=== PATIENT | male | born 1990 | race Caucasian/White ===

== ENCOUNTER 2016-09-13 16:33 | Emergency (ER) | payer OTHER ==
[2016-09-13] MEDS ORDERED: LIDOCAINE 1% 10 ML VIAL INJ ONE (18:03)
--- NOTE | 2016-09-13 18:04 | ED.PDOC ---
History of Present Illness - General Chief Complaint: Laceration Time Seen by Provider: 09/13/16 17:54 Additional Information: CUT ON GLASS - History of Present Illness Timing/Duration: 1 hour Severity: mild Improving Factors: nothing Worsening Factors: nothing Associated Symptoms: denies symptoms, other - TETANUS UTD Allergies/Adverse Reactions: Allergies NO KNOWN ALLERGY Allergy (Verified 04/17/16 16:29) Home Medications: Ambulatory Orders Fluoxetine HCl [Prozac] 40 mg PO DAILY 04/17/16 Promethazine Tab [Phenergan Tablet] 25 mg PO Q4H #14 tab 04/17/16 Stomach Pill 04/17/16 Review of Systems - Review of Systems Constitutional: Denies: chills, fever Musculoskeletal: States: other - PAIN TO LEG. Denies: back pain, neck pain Skin: States: other - LECERATION Neurological: Denies: numbness, paresthesia Past Medical History (General) - Patient Medical History Hx Seizures: No Hx Stroke: No Hx Dementia: No Hx Asthma: No Hx of COPD: No Hx Cardiac Disorders: No Hx Congestive Heart Failure: No Hx Pacemaker: No Hx Hypertension: No Hx Thyroid Disease: No Hx Diabetes: No Hx Gastroesophageal Reflux: No Hx Renal Disease: No Hx Cancer: No Hx of HIV: No Hx Hepatitis C: No Hx MRSA: No - Vaccination History Hx Tetanus, Diphtheria Vaccination: Yes Hx Influenza Vaccination: Yes Hx Pneumococcal Vaccination: Yes - Social History Hx Tobacco Use: Yes Hx Chewing Tobacco Use: Yes Hx Alcohol Use: No Hx Substance Use: No Hx Substance Use Treatment: No Hx Depression: No Hx Physical Abuse: No Hx Emotional Abuse: No Hx Suspected Abuse: No - Female History Patient : No Family Medical History - Family History Mother Family History: No Known Living Status: Still Living Physical Exam - Physical Exam General Appearance: Alert, No apparent distress Eye Exam: bilateral normal Back Exam: normal inspection, no CVA tenderness Extremity: normal range of motion, normal capillary refill Neurologic: no motor/sensory deficits, alert, normal mood/affect Procedures - Laceration/Wound Repair Right Lower Wound Length (cm): 4.5 - LINEAR LACERATION TO R LOWER LEG INTO SUBQ Wound's Depth, Shape: linear Wound Explored: no foreign body removed Betadine Prep?: Yes Anesthesia: 1% Lidocaine Wound Repaired With: heidy Layer Closure?: No Sterile Dressing Applied?: Yes Splint Applied?: No Sling Applied?: No Departure - Departure Clinical Impression: Laceration of leg excluding thigh Qualifiers: Encounter type: initial encounter Laterality: right Qualifier Code: (S81.811A) Laceration without foreign body, right lower leg, initial encounter Time of Disposition: 18:29 Disposition: Discharge to Home or Self Care Condition: Good Departure Forms: ED Discharge - Pt. Copy, Patient Portal Self Enrollment Instructions: DI for Laceration Repair -- [place] Home Medications: Ambulatory Orders Fluoxetine HCl [Prozac] 40 mg PO DAILY 04/17/16 Promethazine Tab [Phenergan Tablet] 25 mg PO Q4H #14 tab 04/17/16 Stomach Pill 04/17/16
[2016-09-13] MEDS ORDERED: POVIDONE IODINE 10 % 15 ML UD TOP ONE (19:11)
[2016-09-13 20:03] VITALS: BP 129/76; TEMP 97.6; O2SAT 98
== END 2016-09-13 18:45 | disposition home or self-care (01) ==
LOC: ER 16:33
DX: S81.811A Laceration without foreign body, right lower leg, initial encounter (principal); Z87.891 Personal history of nicotine dependence; W25.XXXA Contact with sharp glass, initial encounter

== ENCOUNTER 2016-09-18 10:50 | Emergency (ER) | payer OTHER ==
[2016-09-18 11:05] VITALS: BP 152/93; TEMP 98.4; O2SAT 99
[2016-09-18] MEDS ORDERED: SULFA/TRIMETH 800/160 (DS) TAB 1 EA TAB PO ONE (11:11)
--- NOTE | 2016-09-18 11:14 | ED.PDOC ---
History of Present Illness - General Chief Complaint: Trauma Stated Complaint: chain saw blade came off and hit hit face Time Seen by Provider: 09/18/16 11:11 Source: patient Exam Limitations: no limitations - History of Present Illness Initial Comments: pt here for lac x2 t the right face after a chainsaw chain came off of the bar. 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 wearing protective goggles. 2cm lac above the left eye brow and 1.5 cm lace over maxiallary prominence. ebl 40cc. utd on tetanus. Timing/Duration: momentarily Severity: mild Improving Factors: nothing Worsening Factors: nothing Associated Symptoms: denies symptoms Allergies/Adverse Reactions: Allergies NO KNOWN ALLERGY Allergy (Verified 04/17/16 16:29) Home Medications: Ambulatory Orders Fluoxetine HCl [Prozac] 40 mg PO DAILY 04/17/16 Promethazine Tab [Phenergan Tablet] 25 mg PO Q4H #14 tab 04/17/16 Stomach Pill 04/17/16 Review of Systems - Review of Systems Constitutional: States: no symptoms reported EENTM: States: no symptoms reported Respiratory: States: no symptoms reported Cardiology: States: no symptoms reported Gastrointestinal/Abdominal: States: no symptoms reported Genitourinary: States: no symptoms reported Musculoskeletal: States: no symptoms reported Skin: States: see HPI Endocrine: States: no symptoms reported All other Systems: No Change from Baseline Past Medical History (General) - Patient Medical History Hx Seizures: No Hx Stroke: No Hx Dementia: No Hx Asthma: No Hx of COPD: No Hx Cardiac Disorders: No Hx Congestive Heart Failure: No Hx Pacemaker: No Hx Hypertension: No Hx Thyroid Disease: No Hx Diabetes: No Hx Gastroesophageal Reflux: No Hx Renal Disease: No Hx Cancer: No Hx of HIV: No Hx Hepatitis C: No Hx MRSA: No - Vaccination History Hx Tetanus, Diphtheria Vaccination: Yes Hx Influenza Vaccination: Yes Hx Pneumococcal Vaccination: Yes - Social History Hx Tobacco Use: Yes Hx Chewing Tobacco Use: Yes Hx Alcohol Use: No Hx Substance Use: No Hx Substance Use Treatment: No Hx Depression: No Hx Physical Abuse: No Hx Emotional Abuse: No Hx Suspected Abuse: No - Female History Patient : No Family Medical History - Family History Mother Family History: No Known Living Status: Still Living Physical Exam - Physical Exam General Appearance: Alert, Comfortable, No apparent distress Eye Exam: bilateral normal Ears, Nose, Throat: hearing grossly normal, normal ENT inspection Neck: full range of motion Respiratory: no respiratory distress, no accessory muscle use Cardiovascular/Chest: no edema Back Exam: normal inspection Extremity: normal range of motion, no pedal edema Neurologic: alert, normal mood/affect, oriented x 3 Skin Exam: normal color, other - see hpi for lacs Comments: Vital Signs - 24 hr 09/18/16 11:00 Temperature 98.4 F Pulse Rate [ 66 monitor] Respiratory 20 Rate Blood Pressure 152/93 [Left Arm] O2 Sat by Pulse 99 Oximetry Progress - Progress Progress: 09/18/16 11:14 pt here with lacs to left side of face. r/b explained of repair and agrees to proceed. xylo 1% with epi used for local with 2cc. irrigated with 250cc of sterile saline. 2 staple placed across each lac. good hemostasis. utd on tet. given 1 dose of bactrim . monitor for infection. heidy out in 5-7 days. - EKG/XRAY/CT CT Ordered: No Departure - Departure Clinical Impression: Laceration of face Qualifiers: Encounter type: initial encounter Qualifier Code: (S01.81XA) Laceration without foreign body of other part of head, initial encounter Disposition: Discharge to Home or Self Care Condition: Fair Departure Forms: ED Discharge - Pt. Copy, Patient Portal Self Enrollment Instructions: DI for Laceration Repair -- [place] Diet: regular diet Activity: increase activity as tolerated Home Medications: Ambulatory Orders Fluoxetine HCl [Prozac] 40 mg PO DAILY 04/17/16 Promethazine Tab [Phenergan Tablet] 25 mg PO Q4H #14 tab 04/17/16 Stomach Pill 04/17/16 Additional Instructions: remove heidy in 5-7 days.
== END 2016-09-18 11:23 | disposition home or self-care (01) ==
LOC: ER 10:50
DX: S01.81XA Laceration without foreign body of other part of head, initial encounter (principal); Z87.891 Personal history of nicotine dependence; W29.3XXA Contact with powered garden and outdoor hand tools and machinery, initial encounter

== ENCOUNTER 2016-10-28 17:36 | Emergency (ER) | payer OTHER ==
[2016-10-28] MEDS ORDERED: hydrOXYzine HCl 25 MG TAB PO ONE (17:40)
[2016-10-28] MEDS ORDERED: Wellbutrin XL 150 MG TAB PO ONE ×2 (17:40→19:28)
--- NOTE | 2016-10-28 17:45 | ED.PDOC ---
History of Present Illness - General Source: patient Exam Limitations: no limitations - History of Present Illness Initial Comments: the patient is a 26-year-old male presented to emergency room secondary to an anxiety attack. The patient does have generalized anxiety disorder with panic attacks. The patient did not take a dose of his hydroxyzine or his Wellbutrin this morning. The patient started having symptoms approximately one hour prior to arrival. Symptoms are primarily shortness of breath with some chest discomfort. No syncope. Timing/Duration: 1 hour Severity: severe Improving Factors: nothing Worsening Factors: nothing Associated Symptoms: chest pain, shortness of breath <Phil Zambrano - Last Filed: 10/28/16 17:43> <Ankita Johansen - Last Filed: 10/29/16 06:44> - General Chief Complaint: Behavioral / Psych Stated Complaint: anxiety attack Time Seen by Provider: 10/28/16 17:39 - History of Present Illness Allergies/Adverse Reactions: Allergies Eggs or Egg-derived Products Allergy (Verified 10/28/16 17:38) Home Medications: Ambulatory Orders Bupropion HCl [Wellbutrin Xl] 150 mg PO DAILY 10/28/16 Fluoxetine HCl [Prozac] 40 mg PO DAILY 10/28/16 Trazodone HCl 100 mg PO BEDTIME 10/29/16 hydrOXYzine HCl [Atarax] 25 mg PO DAILY 10/29/16 Review of Systems - Review of Systems Constitutional: States: no symptoms reported EENTM: States: no symptoms reported Respiratory: States: no symptoms reported Cardiology: States: no symptoms reported Gastrointestinal/Abdominal: States: no symptoms reported Genitourinary: States: no symptoms reported Musculoskeletal: States: no symptoms reported Skin: States: no symptoms reported Neurological: States: anxiety All other Systems: No Change from Baseline <Phil Zambrano - Last Filed: 10/28/16 17:43> Past Medical History (General) - Patient Medical History Hx Seizures: No Hx Stroke: No Hx Dementia: No Hx Asthma: No Hx of COPD: No Hx Cardiac Disorders: No Hx Congestive Heart Failure: No Hx Pacemaker: No Hx Hypertension: No Hx Thyroid Disease: No Hx Diabetes: No Hx Gastroesophageal Reflux: No Hx Renal Disease: No Hx Cancer: No Hx of HIV: No Hx Hepatitis C: No Hx MRSA: No - Vaccination History Hx Tetanus, Diphtheria Vaccination: Yes Hx Influenza Vaccination: Yes Hx Pneumococcal Vaccination: Yes - Social History Hx Tobacco Use: Yes Hx Chewing Tobacco Use: Yes Hx Alcohol Use: No Hx Substance Use: No Hx Substance Use Treatment: No Hx Depression: No Hx Physical Abuse: No Hx Emotional Abuse: No Hx Suspected Abuse: No - Female History Patient : No <Juan ManuelPhil L - Last Filed: 10/28/16 17:43> Family Medical History - Family History Mother Family History: No Known Living Status: Still Living <Phil Zambrano - Last Filed: 10/28/16 17:43> Physical Exam - Physical Exam General Appearance: Alert, Obvious distress Eye Exam: bilateral normal Neck: full range of motion Respiratory: no respiratory distress, no accessory muscle use Cardiovascular/Chest: other - regular rate Peripheral Pulses: radial,right: 2+, radial,left: 2+ Back Exam: normal inspection Extremity: normal range of motion, normal inspection, no pedal edema Neurologic: alert, oriented x 3, other - obviously anxious Skin Exam: other - flushed Comments: Vital Signs - 24 hr 10/28/16 17:41 Temperature 98 F Pulse Rate [ 100 H Left Radial] Respiratory 20 Rate Blood Pressure 132/92 [Left Radial Artery] O2 Sat by Pulse 99 Oximetry <Phil Zambrano - Last Filed: 10/28/16 17:43> Progress - Progress Progress: 10/28/16 17:46 the patient is a [id number] male presenting with an anxiety attack. The patient received 2 mg of Ativan IM. He also received 25 mg of hydroxyzine 150 mg of Wellbutrin extended release. <Phil Zambrano - Last Filed: 10/28/16 17:43> - Progress Progress: 10/28/16 20:39 Patient is awake and anxiety has returned. reports his anxiety keeps coming in waves. He is laying in bed, curled up and shaking. Will give another dose of Ativan. 10/28/16 22:10 Patient is feeling better but does not want to go home. He is concerned that the panic/anxiety is going to come back. Will watch him for a little longer. 10/29/16 05:39 Patient/family and EMS staff had requested that he be observed over night. He has been sleeping/resting comfortably without difficulty. No more medications required. <Ankita Johansen - Last Filed: 10/29/16 06:44> Departure <Phil Zambrano - Last Filed: 10/28/16 17:43> - Departure Time of Disposition: 06:43 Diet: resume usual diet Activity: increase activity as tolerated <Ankita Johansen - Last Filed: 10/29/16 06:44> - Departure Clinical Impression: Panic attack as reaction to stress Disposition: Discharge to Home or Self Care Condition: Good Departure Forms: ED Discharge - Pt. Copy, Patient Portal Self Enrollment Instructions: DI for Panic Disorder Home Medications: Ambulatory Orders Bupropion HCl [Wellbutrin Xl] 150 mg PO DAILY 10/28/16 Fluoxetine HCl [Prozac] 40 mg PO DAILY 10/28/16 Trazodone HCl 100 mg PO BEDTIME 10/29/16 hydrOXYzine HCl [Atarax] 25 mg PO DAILY 10/29/16
[2016-10-28] MEDS ORDERED: hydrOXYzine HCl 25 MG TAB ONE (19:26)
[2016-10-29 06:56] VITALS: BP 108/60; TEMP 98; O2SAT 99
== END 2016-10-29 06:55 | disposition home or self-care (01) ==
LOC: ER 17:36
DX: F43.0 Acute stress reaction (principal); Z87.891 Personal history of nicotine dependence; Z91.012 Allergy to eggs; Z79.899 Other long term (current) drug therapy
CPT/HCPCS: J2060 ×2

== ENCOUNTER → 2017-02-26 | Outpatient (CLI) | payer OTHER | END | disposition home or self-care (01) | LOC: LAB 11:07 | PROVIDERS: ATTEND Surgery | DX: R10.11 Right upper quadrant pain (principal) ==

== ENCOUNTER 2017-02-27 05:52 | Day surgery (SDC) | payer OTHER ==
[2017-02-27] MEDS ORDERED: SODIUM CHL 0.9% 100ML MINI-BAG 100 ML IVPB ONE (06:46)
[2017-02-27] MEDS ORDERED: LACTATED RINGERS 1,000 ML ONE ×3 (06:47→11:54)
[2017-02-27] MEDS ORDERED: ceFAZolin SODIUM 1 GM VIAL ONE (06:47)
[2017-02-27] MEDS ORDERED: PROPOFOL 200 MG/20 ML VIAL IV ONE (07:00)
[2017-02-27] MEDS ORDERED: NEOSTIGMINE METHYLSULFATE 1 MG/ML ML IV ONE (07:00)
[2017-02-27] MEDS ORDERED: ATROPINE SULFATE 0.4 MG/ML 1ML VIAL ONE (07:00)
[2017-02-27] MEDS ORDERED: fentaNYL CITRATE INJ 50 MCG/ML AMP ONE (07:33)
[2017-02-27] MEDS ORDERED: LIDOCAINE 2 % GEL 5 ML TUBE TOP ONE (07:34)
[2017-02-27] MEDS ORDERED: ROCURONIUM BROMIDE 10 MG/ML VIAL ONE (07:34)
[2017-02-27] MEDS ORDERED: BUPIVACAINE 0.25% W/EPI 50 ML VIAL INJ ONE (08:25)
[2017-02-27] MEDS ORDERED: HEPARIN SODIUM (PORCINE) 10,000 UNITS/ML VIAL ONE (08:25)
[2017-02-27] MEDS ORDERED: MORPHINE SULFATE INJ 10 MG/ML VIAL ONE (10:34)
[2017-02-27] MEDS ORDERED: MORPHINE SULFATE INJ 10 MG/ML VIAL IV ONE ×3 (10:35→10:48)
--- NOTE | 2017-02-27 10:47 | OP ---
DATE OF PROCEDURE: 02/27/17 PREOPERATIVE DIAGNOSIS: 1. Right upper quadrant abdominal pain. 2. Fatty food intolerance. 3. Abnormal HIDA scan with nonvisualization of the gallbladder. 4. Normal liver function tests. 5. Normal amylase and lipase. POSTOPERATIVE DIAGNOSIS: 1. Right upper quadrant abdominal pain. 2. Fatty food intolerance. 3. Abnormal HIDA scan with nonvisualization of the gallbladder. 4. Normal liver function tests. 5. Normal amylase and lipase. 6. Chronic cholecystitis. PROCEDURE: 1. Laparoscopic cholecystectomy with intraoperative cholangiography using fluoroscopy. SURGEON: Vamsi Harkins MD. TILE FINISHER: None. ANESTHESIA: Local infiltration of 0.25% Marcaine with epinephrine and general endotracheal anesthesia. INDICATION: The patient is a 26-year-old male who had a fatty meal several weeks ago and developed abdominal pain. He has had flatus, loose stools, bloating and belching. He has been seen by gastroenterology which obtained an ultrasound, which was normal, including a negative Nicole's sign and then a HIDA scan which revealed nonvisualization of the gallbladder. The patient was brought to the Surgical Suite today for cholecystectomy after the risks, benefits and alternatives to the procedure were discussed and accepted by the patient. FINDINGS: The gallbladder was distended. On opening of the gallbladder, no obvious stones were identified. Intraoperative cholangiography revealed that there was no flow into the distal common bile duct until somewhat increased pressure and then it all of a sudden flushed and continued to flush. No stricture was identified and no stone was specifically identified. No other intraabdominal pathology was identified. There was some scar tissue from the right colon to the anterior abdominal wall at approximately the mid ascending colon. DESCRIPTION OF PROCEDURE: After adequate general endotracheal anesthesia was obtained, the patient was prepped and draped in the usual sterile manner. Surgical time-out was taken. The infraumbilical area was infiltrated with local anesthesia. A curvilinear incision was fashioned and carried down through the subcutaneous tissue to the midline fascia. Traction sutures were placed on either side of the midline. A small incision was made in the midline fascia and the peritoneum was opened bluntly. Theo trocar was introduced under direct vision into the abdominal cavity and fixed in place with the traction sutures. CO2 was then insufflated until a pressure of 12 mmHg was reached and the abdomen was tympanitic in all four quadrants. When this was done, the laparoscope was introduced. The abdomen was inspected with the previously noted findings. The patient was then placed in reverse Trendelenburg position, turned to the left side. The upper abdominal ports were placed under direct vision. The gallbladder was grasped, retracted anteriorly and laterally. The neck of the gallbladder was retracted laterally. The triangle of Calot was then explored using blunt dissection. The cystic duct and cystic artery identified and isolated. The cystic duct was hemoclipped once proximally. The cystic artery was hemoclipped twice proximally and once distally. A small incision was made in the cystic duct. The cholangiogram catheter was introduced through a separate stab wound in the right upper quadrant, introduced into the cystic duct and clipped in place. Cholangiograms were then taken using fluoroscopy with the previously noted findings of initially no flow into the distal common bile duct and then an immediate change with free flow into the duodenum. No strictures or stones were identified. When this was done, the cystic duct catheter was used to put tension on the cystic duct and the more proximal cystic duct was dissected free using blunt dissection and clipped three times distally. The cystic duct catheter was removed. The cystic duct was divided sharply, as was the cystic artery. Two other pieces of soft tissue connecting the neck of the gallbladder to the sloan hepatis area were clipped, then divided with electrocautery. The gallbladder was then dissected free from the gallbladder bed of the liver using electrocautery. Hemostasis was obtained with electrocautery. The gallbladder was then removed from the infraumbilical port site. The subhepatic space and the sloan hepatis were then irrigated copiously with saline. Good hemostasis was noted. No bile leak was identified. The subphrenic space on the right was irrigated copiously with saline. The effluent was noted to be clear. At this point, the upper abdominal ports were removed under direct vision with good hemostasis noted. At this point, the CO2, the laparoscope and the infraumbilical port were removed. The infraumbilical port site fascia was approximated with a single [id number] suture of 0 Vicryl. Subcutaneous tissue was irrigated with saline. Skin edges were approximated with 4-0 Vicryl subcuticular sutures, benzoin and Steri-Strips. Sterile dressings were applied. The patient was awakened and taken to the Recovery Room in good and stable condition. Estimated blood loss was less than 25 mL. All sponge, needle and instrument counts were correct. #[id number] [facility]
[2017-02-27] MEDS ORDERED: ONDANSETRON INJ 4 MG/2 ML VIAL ONE (10:59)
[2017-02-27] MEDS ORDERED: ONDANSETRON INJ 4 MG/2 ML VIAL IV ONE (11:00)
[2017-02-27] MEDS ORDERED: MAGNESIUM HYDROXIDE 30 ML UD ONE (11:16)
[2017-02-27] MEDS ORDERED: METOCLOPRAMIDE HCL INJ 10 MG/2 ML VIAL ONE (11:18)
[2017-02-27] MEDS ORDERED: METOCLOPRAMIDE HCL INJ 10 MG/2 ML VIAL IV ONE (11:25)
[2017-02-27] MEDS ORDERED: HYDROcodone 5MG/APAP 325MG 1 EA TAB ONE (12:14)
[2017-02-27 13:04] VITALS: O2SAT 99
[2017-02-27] MEDS ORDERED: HYDROcodone 5MG/APAP 325MG 1 EA TAB PO ONE (13:10)
[2017-02-27 15:33] VITALS: BP 123/74; TEMP 98
== END 2017-02-27 13:55 | disposition home or self-care (01) ==
LOC: AMB 05:52
PROVIDERS: ATTEND Surgery
DX: R10.11 Right upper quadrant pain (principal); K90.49 Malabsorption due to intolerance, not elsewhere classified; K81.1 Chronic cholecystitis; F31.9 Bipolar disorder, unspecified; K58.9 Irritable bowel syndrome, unspecified; Z87.891 Personal history of nicotine dependence; Z79.899 Other long term (current) drug therapy
CPT/HCPCS: 00790; 47563; 76000; J0690; J1644; J2270; J2405; J2710; J2765; J3010; J3490; J7050; J7120